=== PATIENT | female | born 1975 | race Hispanic/Latino ===

== ENCOUNTER → 2017-09-10 | Outpatient (CLI) | payer OTHER | LOC: LAB.O 15:18 | PROVIDERS: ATTEND Obstetrics & Gynecology | DX: B35.1 Tinea unguium (principal) ==

== ENCOUNTER → 2019-03-09 | Outpatient (CLI) | payer OTHER ==
--- NOTE | 2019-03-11 16:51 | MAM ---
EXAM DESCRIPTION: 3D Screening BILATERAL : Digital Mammography. CLINICAL HISTORY: 43 years Female ANNUAL SCREENING . No complaints. No personal or family history of breast cancer. Menarche age 14. Childbirth. Menstrual history unknown. No HRT. Lifetime risk of developing breast cancer (Tyrer-Cuzick model)(%): 7.8. COMPARISON: Baseline study at this facility.. No prior reports available. TECHNIQUE: Bilateral CC and MLO projection full-field images, digital tomosynthesis mammographic technique. Bilateral digital 2-D full-field MLO images. CAD not available for tomosynthesis or 2-D images. FINDINGS: The breast parenchymal density pattern is: Heterogeneously dense breast tissue, which may obscure small masses. No skin thickening or nipple retraction. Focal asymmetry in the anterior middle third of the right breast at the 11:00 position, approximately 4 cm from the nipple. No new focal, stellate mass or density, focal asymmetry , and no suspicious microcalcifications left breast IMPRESSION: BI-RADS CATEGORY: 0 - INCOMPLETE- Need additional imaging evaluation. FOLLOW-UP: Recall for additional imaging: Bilateral full-field LM 2-D and tomosynthesis images. Bilaterally directed ultrasound following diagnostic images.. Written communication concerning the IMPRESSION and Follow-up, will be mailed to the patient and referring health care provider. Electronically signed by: Yon Collier MD 03/11/2019 4:49 PM [facility]
== END ==
LOC: MAMMO 14:33
PROVIDERS: ATTEND Family Medicine
DX: Z12.31 Encounter for screening mammogram for malignant neoplasm of breast (principal)

== ENCOUNTER → 2019-04-05 | Outpatient (CLI) | payer OTHER ==
--- NOTE | 2019-04-05 16:51 | US ---
EXAM DESCRIPTION: 3D Diagnostic, Right (accession [id number]), Breast,Right (accession [id number]): Ultrasound CLINICAL HISTORY: 43 yearsFemaleABNORMAL MAMMO focal asymmetry right breast. Menarche age 14. Childbirth age 21. Premenopausal. No HRT Lifetime risk of developing breast cancer (Tyrer-Cuzick model)(%): 7.8. COMPARISON: Bilateral screening digital breast tomosynthesis 09 March 2019. TECHNIQUE: Right breast LM projection full-field images, digital tomosynthesis technique. Right breast 2-D digital full-field images. CC and LM projections. CAD not available. . Transcutaneous scanning of the right breast utilizing sanford-scale and Doppler modes. Scanning performed by the potato chip packaging machine operator and Dr. Collier. FINDINGS: The breast parenchymal density pattern is: Heterogeneously dense breast tissue, which may obscure small masses. No skin thickening or nipple retraction the region of interest upper outer quadrant middle third right breast shows mild focal asymmetry and architectural distortion on the LM tomosynthesis images. No new focal, stellate mass or density, and no suspicious microcalcifications right breast. Ultrasound: Scanning upper-outer quadrant of the right breast anterior middle third. Heterogeneous fibroglandular and fatty echotexture. No dominant solid mass or distinct cyst. No parenchymal edema or large calcifications. No overlying skin changes. IMPRESSION: Benign exam. BIRAD CATEGORY: 2 BENIGN FINDINGS. RECOMMENDATIONS: FOLLOW UP: Return to routine digital bilateral mammographic screening, one year interval from February 2019 Written communication explaining the IMPRESSION and follow-up, will be mailed to the patient and referring health care provider. The FINDINGS and the FOLLOW-UP plan were reviewed in person with the patient after the examination. According to the [employer], yearly mammograms are recommended starting at age 40 and continuing as long as a woman is in good health. Any breast change noted on a breast self-exam should be reported promptly to the patient's healthcare provider. Breast MRI is recommended for women with an approximately 20-25% or greater lifetime risk of breast cancer, including women with a strong family history of breast or ovarian cancer and women who have been treated for Hodgkin's disease. A negative mammographic report should not delay tissue diagnosis in patients with significant clinical history or physical findings. Extremely dense breast tissue limits the sensitivity of digital mammography. Electronically signed by: Yon Collier MD 04/05/2019 4:50 PM INSTRUCTOR OF NURSING
== END ==
LOC: MAMMO 13:00
PROVIDERS: ATTEND Family Medicine
DX: N64.9 Disorder of breast, unspecified (principal)
CPT/HCPCS: 76641; 77065; G0279